=== PATIENT | male | born 1960 ===

== ENCOUNTER 2018-07-29 13:17 | Outpatient (CLI) | payer OTHER | END 2018-07-29 13:18 | disposition home or self-care (01) | LOC: SONOGRAMA 13:17 | DX: D21.4 Benign neoplasm of connective and other soft tissue of abdomen (principal) ==

== ENCOUNTER 2018-09-08 08:44 | Outpatient (CLI) | payer OTHER | END 2018-09-08 17:00 | disposition home or self-care (01) | LOC: TOM 08:44 | DX: K42.9 Umbilical hernia without obstruction or gangrene (principal) ==